=== PATIENT | female | born 1975 | race Caucasian/White ===

== ENCOUNTER 2016-11-11 19:05 | Emergency (ER) | payer BC ==
[2016-11-11 19:53] VITALS: BP 241/145
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
== END 2016-11-11 20:32 | disposition short-term general hospital (02) ==
LOC: UCEAST 19:05
DX: H65.92 Unspecified nonsuppurative otitis media, left ear (principal); S00.412A Abrasion of left ear, initial encounter; X58.XXXA Exposure to other specified factors, initial encounter; Y93.9 Activity, unspecified; Y92.9 Unspecified place or not applicable; I16.0 Hypertensive urgency; F17.210 Nicotine dependence, cigarettes, uncomplicated
CPT/HCPCS: 93005; 99212; G0463

== ENCOUNTER 2016-11-11 20:39 | Emergency (ER) | payer BC ==
[2016-11-11] MEDS ORDERED: Aspirin Low Dose CHEW TAB* 81 MG PO ONE (20:55)
[2016-11-11] MEDS ORDERED: Labetalol IV* 5 MG/ML 20 ML VIAL IV PUSH ONE ×3 (20:57→23:03)
[2016-11-11 21:26] LABS: Hematocrit 47 % (35-47); Mean Corpuscular HGB Conc 34 g/dl (31-36); Mean Corpuscular Hemoglobin 31 pg (27-31); Mean Corpuscular Volume 92 fL (80-97); Mean Platelet Volume 9 um3 (7.4-10.4); Red Blood Count 5.09 10^6/ul (4.0-5.4); Red Cell Distribution Width 14 % (10.5-15); White Blood Count 9.8 10^3/ul (3.5-10.8)
--- NOTE | 2016-11-11 21:47 | RAD ---
INDICATION: Uncontrolled hypertension. COMPARISON: August 31, 2012 TECHNIQUE: Dual energy PA and routine lateral views of the chest were obtained. REPORT: Clear lungs and pleural spaces. Negative for pneumothorax. Negative for cardiomegaly. Unremarkable central pulmonary vasculature. Mildly tortuous thoracic aorta. IMPRESSION: No evidence for acute intrathoracic disease.
[2016-11-11 21:50] LABS: Albumin 4.3 g/dL (3.2-5.2); BUN/Creatinine Ratio 15.7 (8-20); Calcium 9.4 mg/dL (8.6-10.3); EGFR African American 118.6 (>60); EGFR Non-African American 92.2 (>60); Globulin 3.2 g/dL (2-4); Total Bilirubin 0.3 mg/dL (0.2-1.0); Total Protein 7.5 g/dL (6.4-8.9)
[2016-11-11 21:51] LABS: Troponin I 0.01 ng/mL (<0.04)
[2016-11-11 22:03] LABS: Potassium 3.8 mmol/L (3.5-5.0)
[2016-11-11] MEDS ORDERED: Ciproflox/Dexameth OTIC.SUSP* 7.5 ML BTL LEFT EAR ONE (23:04)
[2016-11-12 00:21] VITALS: BP 158/100
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
== END 2016-11-12 00:21 | disposition home or self-care (01) ==
LOC: ED 20:39
DX: H60.90 Unspecified otitis externa, unspecified ear (principal); I10 Essential (primary) hypertension; H92.09 Otalgia, unspecified ear; F17.210 Nicotine dependence, cigarettes, uncomplicated
CPT/HCPCS: 36415; 71020; 80053; 84484; 85025; 93005; 96374; 96376; 99212; 99283; A9270-GY; G0463

== ENCOUNTER 2016-11-25 20:56 | Emergency (ER) | payer BC ==
[2016-11-25] MEDS ORDERED: Lidocaine 2% PF * 5 ML VIAL ONE (21:19)
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
== END 2016-11-25 21:50 | disposition home or self-care (01) ==
LOC: UCEAST 20:56
DX: S61.211A Laceration without foreign body of left index finger without damage to nail, initial encounter (principal); W26.0XXA Contact with knife, initial encounter; Y93.G3 Activity, cooking and baking; Y92.9 Unspecified place or not applicable; I10 Essential (primary) hypertension; F17.210 Nicotine dependence, cigarettes, uncomplicated
CPT/HCPCS: 12001; 99211; G0463

== ENCOUNTER 2016-12-26 22:15 | Emergency (ER) | payer BC ==
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
[2016-12-26 23:49] LABS: Hematocrit 35 % (35-47); Hemoglobin 12.2 g/dl (12.0-16.0); Mean Corpuscular HGB Conc 35 g/dl (31-36); Mean Corpuscular Hemoglobin 31 pg (27-31); Mean Corpuscular Volume 91 fL (80-97); Mean Platelet Volume 9 um3 (7.4-10.4); Red Blood Count 3.88 10^6/ul (4.0-5.4); Red Cell Distribution Width 14 % (10.5-15)
[2016-12-27 00:09] LABS: BUN/Creatinine Ratio 23.1 (8-20); Calcium 9.3 mg/dL (8.6-10.3); EGFR African American 129.2 (>60); EGFR Non-African American 100.4 (>60); Potassium 3.7 mmol/L (3.5-5.0)
[2016-12-27 00:36] VITALS: BP 141/100
== END 2016-12-27 00:40 | disposition home or self-care (01) ==
LOC: ED 22:15
DX: N93.8 Other specified abnormal uterine and vaginal bleeding (principal); F17.210 Nicotine dependence, cigarettes, uncomplicated; M54.9 Dorsalgia, unspecified; I10 Essential (primary) hypertension
CPT/HCPCS: 36415; 80048; 84702; 85025; 93005; 99283